=== PATIENT | female | born 1995 | race Caucasian/White ===

== ENCOUNTER 2020-11-19 05:48 | Inpatient (IN) | payer OTHER, SELFPAY ==
[2020-11-19] VITALS (48 sets, daily range): BP systolic 89–121; BP diastolic 55–83; PULSE 71–115; RESP 15–22; TEMP 36.3–37; O2SAT 98–100; BMI 37.6
--- NOTE | 2020-11-19 05:48 | LDADM ---
This patient, Dory Echevarria, was admitted to Labor/Delivery/Recovery 104 on 11/19/20 at 05:48. Plans for labor, pain management and were discussed with patient. Patient/family oriented to hospital policies and general routines including ID bracelet, bed and alarms, visiting hours, pain management, procedures, bathroom and other care routines, personal items, smoking policy, room service/diet and guest tray routines, infant security routines, and visiting hours. Patient/Family are encouraged to report perceived risks to care and to ask questions if they do not understand what they are told or what they should do. See OBIX for further documentation.
[2020-11-19 06:30] LABS: Basophils Percent Auto 0.5 % (0.2-1.2); Eosinophils Absolute Auto 0.1 K/mm3 (0-0.3); Eosinophils Percent Auto 0.8 % (0-4.4); Hematocrit 33.2 % (37.0-47.0); Hemoglobin 11.3 g/dL (12.0-15.0); Immature Granulocyte Absolute 0.12 K/mm3 (0.00-0.031); Immature Granulocyte Percent A 1.4 % (0-0.5); Lymphocytes Absolute Auto 2.39 K/mm3 (0.9-3.2); Lymphocytes Percent Auto 28.5 % (18.3-44.2); Mean Corpuscular Volume 85.1 fl (80-100); Mean Platelet Volume 10.4 fl (7.4-10.4); Monocytes Absolute Auto 0.8 K/mm3 (0.1-0.6); Monocytes Percent Auto 9.5 % (2.6-8.5); Neutrophils Percent Auto 59.3 % (45.5-73.1); Platelet Count Result 166 k/mm3 (150-375); Red Cell Distribution Width 13.4 % (11.5-14.5); White Blood Count 8.4 K/mm3 (4.5-10.0)
[2020-11-19] MEDS: LACTATED RINGERS 1,000 ML 125 ML IV CONT ×2 (06:34→09:21)
[2020-11-19] MEDS: OXYTOCIN 30 UNITS/NS 500 ML 30 UNITS/500 ML BAG IV CONT (06:35)
[2020-11-19 07:43] LABS: Rapid Plasma Reagin Non-Reactive (NonReactive)
--- NOTE | 2020-11-19 07:54 | WPDANESEPP ---
Anes - Eval Pre Procedure Procedure: labor epidural Date/Time: 11/19/20 07:54 Surgeon: Davina Pre Op Diagnosis: IOL Patient Data Age: 25 Gender: F Height: 5 ft Weight: 87.5 kg Last Vital Signs Temp 36.7 C 11/19/20 06:30 Pulse 96 11/19/20 07:46 BP 109/77 11/19/20 07:46 Allergies Allergy/AdvReac Type Severity Reaction Status Date / Time No Known Allergies Allergy Verified 11/19/20 06:47 Home Medications Medication Instructions Recorded Confirmed Type prenat.vits,giuliana,hjo-iuzb-sinih 1 tablet PO DAILY 10/24/20 11/19/20 History [ #2] ferrous sulfate 325 mg PO DAILY 11/19/20 11/19/20 History Laboratory Tests 11/19/20 11/19/20 11/19/20 06:22 06:22 06:22 WBC 8.4 K/mm3 K/mm3 (4.5-10.0) RBC 3.90 M/mm3 L M/mm3 (4.2-5.4) Hgb 11.3 g/dL L g/dL (12.0-15.0) Hct 33.2 % L % (37.0-47.0) MCV 85.1 fl fl (80-100) MCH 29.0 pg pg (26-34) MCHC 34.0 g/dl g/dl (32-36) RDW 13.4 % % (11.5-14.5) Plt Count 166 k/mm3 k/mm3 (150-375) MPV 10.4 fl fl (7.4-10.4) Immature Gran % (Auto) 1.4 % H % (0-0.5) Neut % (Auto) 59.3 % % (45.5-73.1) Lymph % (Auto) 28.5 % % (18.3-44.2) [place] % (Auto) 9.5 % H % (2.6-8.5) Eos % (Auto) 0.8 % % (0-4.4) Baso % (Auto) 0.5 % % (0.2-1.2) Lymph # (Auto) 2.39 K/mm3 K/mm3 (0.9-3.2) [place] # (Auto) 0.8 K/mm3 H K/mm3 (0.1-0.6) Eos # (Auto) 0.1 K/mm3 K/mm3 (0-0.3) Baso # (Auto) 0.0 K/mm3 K/mm3 (0.0-0.1) Abs Immat Gran (auto) 0.12 K/mm3 H K/mm3 (0.00-0.031) Absolute Neuts (auto) 5.0 K/mm3 K/mm3 (1.3-6.7) Absolute Nucleated RBC 0.0 K/mm3 K/mm3 (0.0-0.012) Nucleated RBC % 0.0 % % (0.0-0.2) RPR Non-reactive (NonReactive) Blood Type A Positive Antibody Screen Negative Patient hx anesthesia problems: none Family hx anesthesia problems: none PMFSH Past Medical History Medical History (Updated 11/19/20 @ 07:55 by Milo Hawkins CRNA) Obesity Family History Family History (Updated 10/24/20 @ 15:24 by Smiley Hernandez RN) Other Adopted Unknown family medical history Social History Social History Smoking status: Never smoker Substance use: never Spiritual care concerns: No Exam Day of Procedure 11/19/20 07:54 Patient weight: obese Heart: regular rate and rhythm Lungs: clear to auscultation and normal air movement Neurological: alert and oriented
--- NOTE | 2020-11-19 08:08 | PM.IMHP ---
H&P: HPI History of Present Illness Date/Time: 11/19/20 08:08 Chief Complaint: elective induction Narrative: Dory Echevarria is a 25 year old female AT 39w 2d for elective IOL. Doing well, having occasional contractions. No complaints today. Uncomplicated care. Review of Systems Review of Systems: All systems reviewed & are unremarkable except as noted in HPI and below Constitutional: Constitutional: Reports no additional constitutional complaints Eyes: Eyes: Reports no additional eye complaints ENT: Reports system reviewed and no additional complaints, except as documented Cardiovascular: Cardiovascular: Reports no additional cardiovascular complaints Respiratory: Respiratory: Reports no additional respiratory complaints Gastrointestinal: Gastrointestinal: Reports no additional gastrointestinal complaints Genitourinary: Genitourinary: Reports no additional female genitourinary complaints Musculoskeletal: Musculoskeletal: Reports no additional musculoskeletal complaints Integumentary/Breasts: Skin/Breast: Reports system reviewed and no additional complaints, except as docu Neurologic: Reports system reviewed and no additional complaints, except as documented Psychiatric: Psychiatric: Reports no additional psychiatric complaints Endocrine: Endocrine: Reports no additional endocrine complaints Hematologic/Lymphatic: Hematologic/Lymphatic: Reports no additional hematologic/lymphatic complaints Allergic/Immunologic: Allergic/Immunologic: Reports no additional allergic/immunologic complaints PMFSH Past Medical History Medical History Obesity Family History Family History Other Adopted Unknown family medical history Social History Social History Smoking status: Never smoker Substance use: never Spiritual care concerns: No Meds Home Medications and Allergies Home Medications Medication Instructions Recorded Confirmed Type prenat.vits,giuliana,yep-bntr-ogywl 1 tablet PO DAILY 10/24/20 11/19/20 History [ #2] ferrous sulfate 325 mg PO DAILY 11/19/20 11/19/20 History Allergies Allergy/AdvReac Type Severity Reaction Status Date / Time No Known Allergies Allergy Verified 11/19/20 06:47 Vital Signs Vital Signs - 24 hr 11/19/20 06:13 11/19/20 06:15 11/19/20 06:30 Temperature 36.7 C Pulse Rate 103 H 115 H 102 H Blood Pressure 110/78 110/75 121/81 11/19/20 06:46 11/19/20 07:01 11/19/20 07:16 Temperature Pulse Rate 99 94 93 Blood Pressure 111/81 106/73 108/77 11/19/20 07:31 11/19/20 07:46 11/19/20 08:01 Temperature Pulse Rate 88 96 91 Blood Pressure 106/76 109/77 118/76 Exam Const: General: cooperative, healthy appearing, comfortable, no acute distress, well developed, alert, awake, Physically active and acute distress Resp: Effort & Inspection: normal respiratory effort, able to speak in complete sentences, normal respiratory pattern, no audible wheezes, no cough and not labored Cardio: Rate: regular rate GI: Inspection: normal to inspection GI Palp: No abdominal tenderness and Yes Soft to palpation : Manual OB Exam: dilated 3 cm, effaced 50% and station -2 Amniotic Fluid: clear Psych: Appearance: grossly normal Mental Status: mental status grossly normal Speech and movement: Normal speech and movement present Affect: normal affect Attitude: cooperative Thought process: Normal thought process present Thought content: Yes Normal thought content present Insight: Good insight present (Psych) Judgement: Good judgement present (Psych) H&P: Results Labs Labs: Short CBC 11/19/20 Range/Units 06:22 WBC 8.4 (4.5-10.0) K/mm3 Hgb 11.3 L (12.0-15.0) g/dL Hct 33.2 L (37.0-47.0) % Plt Count 166 (150-375) k/mm3 Assessment and Plan Assessment and
--- NOTE | 2020-11-19 08:16 | WPDHPUPDATE1 ---
History and Physical Update Update Date/Time: 11/19/20 08:16 History and Physical has been reviewed, including an updated exam of the patient. There are NO changes in the patient's condition. Risks, benefits, and alternatives have been discussed and questions answered. Patient agrees to proceed with procedure.
--- NOTE | 2020-11-19 12:13 | P.PCNOB_ITS ---
OB - Delivery Note Procedure Delivery date: 11/19/20 Procedure: Normal spontaneous vaginal delivery Intrapartal events: None Induction method: AROM and per pitocin protocol Delivery monitor: external FHT and external uterine Route of delivery: Laceration Description: None Specimen: No Quantitative Blood Loss (ml): 400 Anesthesia type: Epidural Disposition: floor Narrative: Once she was noted to be complete and ready to push, the labor bed was broken down and legs were placed in stirrups for support. With contractions and maternal efforts, the presented in OA position. The head was delivered. Checked for nuchal cord, no nuchal cord noted. Gentle downward traction was applied and the anterior shoulder delivered without issues, followed by the posterior shoulder and rest of the body. was vigorous a nd crying, so delayed cord clamping of approximately 1 minute was performed. The cord was clamped and cut. Cord gasses collected. Placenta was delivered spontaneously. IV oxytocin administered and fundal massage applied. Exam was performed to identify any lacerations. 2nd degree perineal laceration was repaired with 2-0 Vicryl. Good hemostasis noted. Patient tolerated the procedure well. All instrument and sponge counts were correct at the end of the procedure. [place] Baby Date of : 11/19/20 Time of : 12:03 Weeks of gestation at delivery: 39 Weight (pounds): 7 Weight (ounces): 14 presentation: vertex position: Left Occiput Anterior Placenta delivery description: Spontaneous cord vessel description: 3 Vessels and Clamped/Cut score one minute: 9 score five minutes: 9
--- NOTE | 2020-11-19 15:20 | OBPPTRN ---
1441 Patient transferred to post room #280 via W/C. Support person present. Oriented to unit, room, information board, rooming in, admission packet and security measures. Patient verbalizes understanding.
[2020-11-19] MEDS: IBUPROFEN 600 MG TABLET PO (19:49)
[2020-11-20] MEDS: IBUPROFEN 600 MG TABLET PO ×2 (02:47→13:12)
--- NOTE | 2020-11-20 04:29 | PC.NURSE ---
11/20/2020 Significant other syncopal in bathroom. Rapid Response Team called.
[2020-11-20 05:37] LABS: Hematocrit 29.6 % (37.0-47.0)
[2020-11-20] MEDS: BENZOCAINE 20% AER SPR (*SP) 56 GM CAN 1 SPRAY TOPICAL (07:21)
[2020-11-20] MEDS: WITCH HAZEL 40 PADS 1 PAD TOPICAL (07:21)
[2020-11-20] MEDS: DOCUSATE SODIUM 100 MG CAPSULE PO (07:22)
[2020-11-20 08:00] VITALS: BP 111/64; PULSE 56; PULSE 83; RESP 15; RESP 20; TEMP 36.3; O2SAT 100
--- NOTE | 2020-11-20 11:18 | WPDANLDPN2 ---
Anes-Prog Note L&D Date/Time: 11/20/20 11:18 Comfortable throughout: labor and delivery Neuraxial method: epidural Epidural/Spinal procedure site: clean & non-tender Neuro status: Neuro function grossly intact. Cardiovascular status: normal Respiratory status: normal Airway patency: baseline Mental status: baseline Post-Op hydration status: normal Vital Signs: Last Vital Signs Temp 36.3 C L 11/20/20 08:00 Pulse 83 11/20/20 08:00 Resp 20 11/20/20 08:00 BP 111/64 11/20/20 08:00 Pulse Ox 100 11/20/20 08:00 Pain score (VAS): 0/10. Patient resting in bed at time of assessment, appears comfortable. Support person at bedside. I/O: Intake & Output 11/19/20 11/20/20 11/20/20 23:59 07:59 15:59 Intake Total 0 Balance 0 Post-procedural complaints: none Patient feedback: Patient satisfied with anesthetic care.
--- NOTE | 2020-11-20 11:33 | PM.OBPNVD ---
OB - PN: Subj Subjective Date/time seen: 11/20/20 11:33 Interval history: 25yo s/p on 11/19. Doing well today, no issues/complaints. Pain is controlled with pain medication, feeling sore. Lochia is minimal. Ambulating. Bottle feeding. Patient comments: no complaints, pain well controlled and tolerating diet baby status: bottle feeding well OB - PN: Obj Data Labs CBC & Chem 7: 11/20/20 05:22 Labs: Laboratory Results - last 24 hr 11/20/20 05:22 Hgb 10.0 L Hct 29.6 L OB - PN A/P Assessment and Plan (1) (normal spontaneous vaginal delivery): Code(s): O80 - Encounter for full-term uncomplicated delivery Status: Acute Assessment and Plan: Routine care Pain management Ambulate Time Spent With Patient Time: Total time spent is greater than 50% in coordination of care (as documented) at patient's floor/unit and/or counseling patient: Exam Const: General: cooperative, healthy appearing, comfortable, no acute distress, well developed, alert, awake and Physically active; No acute distress HENMT: Head: normocephalic and atraumatic Resp: Effort & Inspection: normal respiratory effort, able to speak in complete sentences, normal respiratory pattern, no audible wheezes, no cough and not labored Cardio: Rate: regular rate GI: Inspection: normal to inspection Neuro: General: oriented to person, oriented to place and oriented to time Psych: Appearance: grossly normal Mental Status: mental status grossly normal Speech and movement: Normal speech and movement present Affect: normal affect Attitude: cooperative Thought process: Normal thought process present Insight: Good insight present (Psych) Judgement: Good judgement present (Psych)
--- NOTE | 2020-11-20 14:53 | PC.NURSE ---
Self care and infant care discharge instructions given including follow up visit date and time. Pt. verbalized understanding. No questions voiced. at side.
[2020-11-21 07:51] VITALS: BP 114/72; PULSE 75; RESP 16; TEMP 37.1; O2SAT 99
--- NOTE | 2020-11-21 09:22 | PM.OBDSVD ---
DS: Admitting Diagnosis Admitting Diagnosis Admitting Diagnosis: Elective induction of labor DS: Discharge Diagnosis Discharge Diagnosis (1) (normal spontaneous vaginal delivery): Code(s): O80 - Encounter for full-term uncomplicated delivery Status: Acute OB - DS: Summary OB Procedures : None OB Procedures Intrapartum: Spontaneous Vag Delivery OB Procedures: : None Peripartum Data Delivery Method: Natural Vaginal Laceration Description: None Status at Discharge Functional status at discharge: independent ambulation Overall status at discharge: patient is progressing back to baseline Time Spent with Patient Time attestation: Total time spent providing and/or coordinating discharge services: Exam Const: General: cooperative, healthy appearing, comfortable, no acute distress, well developed, alert, awake and Physically active; No acute distress Orientation/consciousness: oriented to person, oriented to place and oriented to time HENMT: Head: normocephalic and atraumatic Resp: Effort & Inspection: normal respiratory effort, able to speak in complete sentences, normal respiratory pattern, no audible wheezes, no cough and not labored Cardio: Rate: regular rate GI: Inspection: normal to inspection Neuro: General: oriented to person, oriented to place and oriented to time Psych: Appearance: grossly normal Mental Status: mental status grossly normal Speech and movement: Normal speech and movement present Affect: normal affect Attitude: cooperative Thought process: Normal thought process present Insight: Good insight present (Psych) Judgement: Good judgement present (Psych) Discharge Plan Discharge Attending physician on discharge: Yoan Ghosh Discharging Clinician: Yoan Ghosh Patient Disposition: Home, Self-Care Activity: may shower, no straining, as tolerated and pelvic rest Diet: regular Discharge Instructions: Education: Mom and Baby Guide Given to: Mother Follow-Up: Call your delivering provider's office for an appointment to be seen in: 4 Weeks Mom and baby should come to the [facility] for the follow-up appointment. Appointment Date/Time: November 21, 2020 at 8:00 am What to expect at your follow-up visit: Blood Pressure Check Physical Assessment Call [phone] if you are unable to keep your appointment time. BREAST CARE: * Wear a snug supportive bra. Bottle Feeding: * May apply ice packs * EPISIOTOMY/PERINEAL CARE: * Until bleeding stops, use your winsome bottle after urinating * Change your pad frequently throughout the day * You may take sitz baths several times a day (fill your bathtub with warm water and soak for 20 minutes.) Do NOT bathe in the water * No tub baths until seen by your physician - You may shower ACTIVITY: * Rest as much as possible. * Do not exercise or lift anything heavier than your baby (such as laundry or other children.) * Do not put anything into the vagina. No douching, tampons, or sexual activity until seen by physician. NOTIFY PHYSICIAN IF YOU HAVE ANY QUESTIONS OR IF ANY OF THE FOLLOWING SYMPTOMS OCCUR: * If your vaginal bleeding becomes foul smelling. * If your vaginal bleeding becomes more heavy than a period or if your bleeding changes from pink to bright red. However, you may pass an occasional walnut-sized clot once or twice for the first week . * If you experience a sharp, shooting pain in you calves. * If you discover a hard, reddened area on your breast or if you experience flu-like symptoms. DIET: * Eat regular, well-balanced meals. * Drink plenty of fluids daily. If , drink to thirst. Patient Instructions: Antibiotic Form Stand Alone Forms: General Discharge Information Follow-up/Referrals: Yoan Ghosh DO [Physician] - 4 Weeks (4 weeks for visit) Discharge Medications: New polysaccharide iron
== END 2020-11-20 15:55 | disposition home or self-care (01) | DRG 807 ==
LOC: ANHLDR 05:53 → ANHOB2 14:44
PROVIDERS: Admitting Provider Obstetrics & Gynecology; PCP Internal Medicine; Visit Provider Obstetrics & Gynecology
DX: O99.214 Obesity complicating childbirth (principal); Z37.0 Single live birth; Z3A.39 39 weeks gestation of pregnancy; E66.9 Obesity, unspecified
CPT/HCPCS: 36415; 85014; 85018; 85025; 86592; 86850; 86900; 86901; A9270; J2590; J2795; J7120